=== PATIENT | female | born 1995 | race Caucasian/White ===

== ENCOUNTER 2018-11-19 10:50 | Outpatient (CLI) | payer OTHER | END 2018-11-19 10:51 | disposition home or self-care (01) | LOC: DTY/OP 10:50 | PROVIDERS: ATTEND Surgery | DX: E66.01 Morbid (severe) obesity due to excess calories (principal) | CPT/HCPCS: 97802 ==

== ENCOUNTER 2018-12-21 09:41 | Outpatient (CLI) | payer OTHER | END 2018-12-21 09:42 | disposition home or self-care (01) | LOC: DTY/OP 09:41 | PROVIDERS: ATTEND Surgery | DX: E66.01 Morbid (severe) obesity due to excess calories (principal) | CPT/HCPCS: 97802 ==

== ENCOUNTER 2019-01-19 10:47 | Outpatient (CLI) | payer OTHER | END 2019-01-19 10:48 | disposition home or self-care (01) | LOC: DTY/OP 10:47 | PROVIDERS: ATTEND Internal Medicine | DX: E66.01 Morbid (severe) obesity due to excess calories (principal) | CPT/HCPCS: 97802 ==

== ENCOUNTER 2019-02-22 11:00 | Outpatient (CLI) | payer OTHER | END 2019-02-22 11:01 | disposition home or self-care (01) | LOC: DTY/OP 11:00 | PROVIDERS: ATTEND Internal Medicine | DX: E66.01 Morbid (severe) obesity due to excess calories (principal) | CPT/HCPCS: 97802 ==

== ENCOUNTER 2019-05-24 08:00 | Inpatient (IN) | payer OTHER ==
[2019-05-31] MEDS ORDERED: Heparin 5,000 UNITS/ML VIAL ONE (07:43)
[2019-05-31] MEDS ORDERED: ceFAZolin Sodium (SDC) 2 GM/100 ML BAG ONE (07:43)
[2019-05-31] MEDS ORDERED: Midazolam HCl 2 mg/2 ml Vial ONE ×2 (08:20→08:28)
[2019-05-31] MEDS ORDERED: Bupivacaine/Epinephrine 0.25% 30 ML VIAL ONE (08:26)
[2019-05-31] MEDS ORDERED: Fentanyl 100 MCG/2 ML VIAL ONE ×3 (08:28→11:05)
[2019-05-31] MEDS ORDERED: Hydrocodone-Acetamin 15 ML UDCUP PO PRN (10:07)
[2019-05-31] MEDS ORDERED: Dextrose 5% in Water 1,000 ML IV PRN (10:07)
[2019-05-31] MEDS ORDERED: hydrALAZINE 20 MG/ML VIAL SLOW IVP PRN (10:07)
[2019-05-31] MEDS ORDERED: Dextrose 50% Abboject 50 ML SYRINGE SLOW IVP PRN (10:07)
[2019-05-31] MEDS ORDERED: diphenhydrAMINE 50 MG/ML VIAL IVP PRN ×2 (10:07→10:33)
[2019-05-31] MEDS ORDERED: Ondansetron PF 4 MG/2 ML Vial IVP PRN ×2 (10:07→10:33)
[2019-05-31] MEDS ORDERED: Promethazine HCl 25 MG/ML VIAL IM PRN ×3 (10:07→10:33)
[2019-05-31] MEDS ORDERED: Ondansetron HCl/PF 4 MG/2 ML Vial IVP PRN (10:19)
[2019-05-31] MEDS ORDERED: Promethazine HCl 25 MG/ML VIAL SLOW IVP PRN (10:19)
[2019-05-31] MEDS ORDERED: Naloxone HCl 0.4 mg/ml Vial IV PRN (10:33)
[2019-05-31] MEDS ORDERED: diphenhydrAMINE 25 MG CAP PO PRN (10:33)
[2019-05-31] MEDS ORDERED: Zolpidem Tartrate 5 MG TAB PO PRN (10:33)
[2019-05-31] MEDS ORDERED: fentaNYL Citrate/PF 2,000 MCG in Sodium Chloride 0.9% 60 ML IV PRN (10:33)
[2019-05-31] MEDS ORDERED: diphenhydrAMINE 50 MG/ML VIAL IM PRN (10:33)
[2019-05-31] MEDS ORDERED: Promethazine HCl 25 MG/ML VIAL ONE (10:37)
[2019-05-31] MEDS ORDERED: Communication Order-Pharmacy FS SCH (10:45)
--- NOTE | 2019-05-31 12:34 | OP ---
DATE OF PROCEDURE: 05/31/2019 PREOPERATIVE DIAGNOSIS: Morbid obesity with a body mass index of 61. POSTOPERATIVE DIAGNOSIS: Morbid obesity with a body mass index of 61. PROCEDURE PERFORMED: Laparoscopic sleeve gastrectomy, [place] staple line reinforcements and 38-[place] bougie. ANESTHESIA: General. ESTIMATED BLOOD LOSS: 50 mL. COMPLICATIONS: None. SPECIMENS: Stomach. FINDINGS: Normal postoperative EGD. DESCRIPTION OF PROCEDURE: The patient was taken to the operating room and laid supine on the operating room table. After general anesthetic was obtained, the arms and legs were double strapped to bariatric table. OG tube was used to decompress the stomach. The abdomen was prepped and draped in a sterile fashion. Left subcostal 5 mm Optiview trocar was placed in the usual fashion and high-flow pneumoperitoneum was obtained. Left and right abdominal 12 mm ports as well as right subcostal 5-mm port were all placed under direct visualization. Short gastrics were taken down to a distance of 6 cm proximal to the pylorus all the way to the left ludmila. The left ludmila, angle of His, and posterior fundus completely dissected. Multiple loads of an [place] stapling device were used to perform the sleeve. A 38 bougie was brought in its tip left in the antrum of the stomach. The OG was removed. The first fire was fired up at a distance of 6 cm proximal to the pylorus angled up towards the incisura. Multiple loads were then fired up along the bougie. Stomach was completely transected at the angle of His. Stomach was removed from the left abdominal incision. The fascial defect was closed using GraNee needle and 0 Vicryl tie. All port sites were infiltrated using local anesthetic. All ports were removed under camera visualization. Pneumoperitoneum was let down. EGD scope had been passed from esophagus, stomach, to the level of the duodenum without obstruction or stricture. There was no stricture at the incisura. The Vicryl was used to close the fascial defect from the left abdominal incisions. All incisions were irrigated and closed using 4-0 Monocryl and Dermabond. The patient was sent to Recovery in stable condition. All instrument counts, needle counts, and lap counts were correct. Job ID: [id number]
[2019-05-31] MEDS: D5 1/2 NS w/20 mEq KCL 1,000 ML IV SCH ×3 (15:17→23:06)
[2019-05-31] MEDS: Acetaminophen 1,000 MG in Premix Bag 1 BAG IVPB SCH ×3 (15:17→23:06)
[2019-05-31 16:23] VITALS: BMI 60.2
[2019-05-31] MEDS ORDERED: Enoxaparin Sodium 40 MG/0.4 ML SYRINGE SC SCH (21:00)
[2019-06-01] MEDS: Acetaminophen 1,000 MG in Premix Bag 1 BAG IVPB SCH (05:54)
[2019-06-01] MEDS: D5 1/2 NS w/20 mEq KCL 1,000 ML IV SCH (05:54)
[2019-06-01] MEDS ORDERED: Hydrocodone-Acetamin 15 ML UDCUP PO PRN ×2 (08:15→09:26)
[2019-06-01 08:34] VITALS: BP 148/87; TEMP 98.1
[2019-06-01] MEDS ORDERED: Pantoprazole 40 MG VIAL IVP SCH (09:00)
[2019-06-01 10:13] LABS: Anion Gap 12 mmol/L (10-20); BUN (Urea Nitrogen) 4 mg/dL (7.0-18.7); Calc. Creatinine Clearance 331 mL/min (70-130); Calcium 9.5 mg/dL (7.8-10.44); Carbon Dioxide 26 mmol/L (22-29); Chloride 106 mmol/L (98-107); Estimated GFR-MDRD Greater than 90; Glucose 99 mg/dL (70-105); Potassium 3.7 mmol/L (3.5-5.1); Sodium 140 mmol/L (136-145)
[2019-06-01 10:24] LABS: #Lymphocytes 1.5 thou/uL (1.20-3.40); #Monocytes 0.9 thou/uL (0.11-0.59); #Neutrophils 8.4 thou/uL (1.40-6.50); %Eosinophils 0.1 % (0.0-10.0); %Lymphocytes 13.7 % (21.0-51.0); %Monocytes 8.6 % (0.0-10.0); %Neutrophils 77.5 % (42.0-75.0); Hemoglobin 12.6 g/dL (12.0-16.0); Mean Corpuscular HGB CONC 34.1 g/dL (32.0-36.0); Mean Corpuscular Volume 85.2 fL (78.0-98.0); Mean Platelet Volume 8.9 fL (7.4-10.4); Platelet Count 233 thou/uL (130-400); RBC Distribution Width 12.3 % (11.5-14.5); Red Blood Cell (RBC) Count 4.32 mill/uL (4.20-5.40); White Blood Cell (WBC) Count 10.9 thou/uL (4.8-10.8)
--- NOTE | 2019-06-01 10:25 | DIS ---
DATE OF ADMISSION: 05/31/2019 DATE OF DISCHARGE: 06/01/2019 ADMIT DIAGNOSIS: Morbid obesity. DISCHARGE DIAGNOSIS: Morbid obesity. PROCEDURE PERFORMED: Laparoscopic sleeve by Dr. Gaxiola without complication. CONDITION ON DISCHARGE: Improved. STAFF: Celestine Gaxiola MD HOSPITAL COURSE: On postop day 1, the patient's vital signs are stable. Her abdomen exam is benign. Her wounds are all clear. She tolerated the liquid diet overnight without difficulty. She has been discharged home. She will follow up with me in 2 weeks. Job ID: [id number]
== END 2019-06-01 10:06 | disposition home or self-care (01) | DRG 621 ==
LOC: SURG A 05-31 07:25 → SURG B 05-31 13:36
PROVIDERS: ADMIT Surgery; ATTEND Surgery
PROC: 0DB64Z3 Excision of Stomach, Percutaneous Endoscopic Approach, Vertical (ICD-10-PCS; principal; 2019-05-31)
DX: E66.01 Morbid (severe) obesity due to excess calories (principal); Z68.44 Body mass index [BMI] 60.0-69.9, adult
CPT/HCPCS: 80048; 85025; 88307; 88312; C9113; J0131; J0690; J1644; J1650; J2250; J2405; J2550; J3010; J3490

== ENCOUNTER 2019-05-24 08:06 | Outpatient (CLI) | payer OTHER ==
--- NOTE | 2019-05-24 09:04 | RAD ---
PA AND LATERAL VIEWS CHEST: Date: 05/24/19 HISTORY: Preoperative evaluation. FINDINGS: The cardiomediastinum is normal. The lungs are well expanded and clear. The bony thorax is normal. IMPRESSION: Normal exam. POS: OFF
[2019-05-24 09:36] LABS: #Eosinphils 0.1 thou/uL (0.0-0.7); #Lymphocytes 1.8 thou/uL (1.20-3.40); #Monocytes 0.5 thou/uL (0.11-0.59); #Neutrophils 4.2 thou/uL (1.40-6.50); %Basophils 0.7 % (0.0-1.0); %Eosinophils 1.5 % (0.0-10.0); %Neutrophils 62.9 % (42.0-75.0); Hemoglobin 13.4 g/dL (12.0-16.0); Mean Corpuscular HGB CONC 34.1 g/dL (32.0-36.0); Mean Corpuscular Volume 85.1 fL (78.0-98.0); Mean Platelet Volume 8.4 fL (7.4-10.4); Platelet Count 243 thou/uL (130-400); RBC Distribution Width 12.4 % (11.5-14.5); Red Blood Cell (RBC) Count 4.61 mill/uL (4.20-5.40); White Blood Cell (WBC) Count 6.6 thou/uL (4.8-10.8)
[2019-05-24 09:38] LABS: Hemoglobin A1c 5.1 % (4.0-6.0)
[2019-05-24 09:41] LABS: BHCG - Serum Negative (NEGATIVE); Pregs Control Background? CLEAR/WHITE (CLR/WHITE); Pregs Control Bar Appear? YES (CONTROL BAR)
[2019-05-24 09:52] LABS: ALT (SGPT) 25 U/L (8-55); AST (SGOT) 20 U/L (5-34); Albumin 4.4 g/dL (3.5-5.0); Alkaline Phosphatase 59 U/L (40-150); Anion Gap 13 mmol/L (10-20); BUN (Urea Nitrogen) 15 mg/dL (7.0-18.7); Bilirubin, Direct 0.2 mg/dL (0.1-0.3); Bilirubin, Total 0.6 mg/dL (0.2-1.2); Calc. Creatinine Clearance 0 mL/min (70-130); Carbon Dioxide 27 mmol/L (22-29); Chloride 103 mmol/L (98-107); Estimated GFR-MDRD Greater than 90; Globulin 4.1 g/dL (2.4-3.5); Glucose 92 mg/dL (70-105); Potassium 3.7 mmol/L (3.5-5.1); Protein, Total 8.5 g/dL (6.0-8.3); Sodium 139 mmol/L (136-145)
--- NOTE | 2019-05-25 13:20 | EKG ---
Test Reason : Blood Pressure : / mmHG Vent. Rate : 074 BPM Atrial Rate : 074 BPM P-R Int : 138 ms QRS Dur : 100 ms QT Int : 378 ms P-R-T Axes : 023 035 057 degrees QTc Int : 419 ms Normal sinus rhythm Normal ECG No previous ECGs available Confirmed by ZAHRA RAYO (2) on 05/25/2019 1:19:42 PM Referred By: ESHA Confirmed By:ZAHRA RAYO
== END 2019-05-24 08:07 | disposition home or self-care (01) ==
LOC: LABBT 08:06
PROVIDERS: ATTEND Surgery
DX: Z01.818 Encounter for other preprocedural examination (principal); E66.01 Morbid (severe) obesity due to excess calories
CPT/HCPCS: 71046; 80053; 80076; 83036; 84703; 85025; 93005; 93010